=== PATIENT | female | born 1955 | race Caucasian/White ===

== ENCOUNTER → 2016-04-30 | Outpatient (CLI) | payer MEDICAID | END | disposition home or self-care (01) | LOC: RAD.S 08:26 | DX: K75.4 Autoimmune hepatitis (principal); R16.2 Hepatomegaly with splenomegaly, not elsewhere classified ==

== ENCOUNTER 2016-05-03 05:19 | Emergency (ER) | payer MEDICAID ==
--- NOTE | 2016-05-03 19:08 | ER ---
ADMIT: 05/03/2016 RM/LOC: ER [facility] MR#: [id number] [place], [place] [id number] KATLYN RUVALCABABERT Prabhakar [address] [address] Emergency Room Report SEX: F AGE: 61 : 1955 DATE: 05/03/2016 SUBJECTIVE: The patient is a 61-year-old female with a past medical history of diabetes, hypertension, autoimmune hepatitis, came to the ER with chief complaint of feeling dizzy for one day. The patient denies any nausea, vomiting, or diarrhea. Denies any chest pain. The patient also states she has at her baseline shortness of breath. PHYSICAL EXAMINATION: VITAL SIGNS: In the ER, the patient was afebrile, O2 saturation was in the low 90s, very concerned from previous visits. HEAD AND NECK: Slightly dry mucous membrane, skin turgor is normal, pupils are 3 mm, reactive to light without any nystagmus. Trachea is midline. LUNGS: Clear bilaterally. HEART: Normal heart sounds without any murmurs. ABDOMEN: Soft. The rest of the physical exam is noncontributory. The patient is taking multiple medications, and states that she recently had new medications too. EKG was normal sinus rhythm, cardiac enzymes are negative, CMP was negative for any acute changes. Chest x-ray did not show any infiltration or abnormalities. Chest x-ray was just suggestive of cardiomegaly. UA was negative for urinary tract infections. The patient received IV fluids, and was started on antibiotic therapy for urine tract infection. The patient states she feels better after the IV fluids and was discharged to home with return precautions, and follow up with the primary doctor as needed. Miles Oneill MD/ chirag JOB #: [id number] CC: Miles Oneill MD, Attending Physician Cierra Polanco MD, Family Physician
== END 2016-05-03 09:14 | disposition home or self-care (01) ==
LOC: ER 05:19
DX: E86.0 Dehydration (principal); N39.0 Urinary tract infection, site not specified; R42 Dizziness and giddiness; E11.9 Type 2 diabetes mellitus without complications; I10 Essential (primary) hypertension; Z90.710 Acquired absence of both cervix and uterus; Z90.89 Acquired absence of other organs; Z79.899 Other long term (current) drug therapy

== ENCOUNTER → 2016-05-25 | Outpatient (CLI) | payer MEDICAID | END | disposition home or self-care (01) | LOC: RAD.S 10:15 | DX: M25.512 Pain in left shoulder (principal) ==